=== PATIENT | male | born 2000 | race Caucasian/White ===

== ENCOUNTER 2025-06-21 19:48 | Emergency (ER) | payer BC, SELFPAY ==
[2025-06-21 20:26] VITALS: BP 119/73; PULSE 90; RESP 20; TEMP 37.1; O2SAT 98
--- NOTE | 2025-06-21 20:43 | PD.EDRME ---
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 Symptoms now improved. Exam: Mildly anxious Clinical Impression: Anxiety reaction
--- NOTE | 2025-06-21 20:45 | EKG_ITS ---
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
--- NOTE | 2025-06-21 20:46 | XR_ITS ---
EXAMINATION: PA chest single view TECHNIQUE: Upright PA chest single view Date and time: June 21, 2025, 2052 hours INDICATIONS: Chest pain today FINDINGS: Normal heart size The lungs are clear. The Bruno structures are intact IMPRESSION: No active disease
[2025-06-21 21:40] LABS: Amphetamine/Methamp Scrn,U Negative (Negative); Barbiturate Screen,Urine Negative (Negative); Benzodiazepines Screen,Urine Negative (Negative); Benzoylecgonine Screen, Ur Negative (Negative); Fentanyl Screen,Urine Negative (Negative); Opiate Screen,Urine Negative (Negative); THC Screen,Urine Negative (Negative)
[2025-06-21 21:45] LABS: Basophils # (Auto) 0.0 Thou/mm3 (0.0-0.2); Basophils % (Auto) 0 % (0-2.5); Eosinophils # (Auto) 0.1 Thou/mm3 (0.0-0.5); Eosinophils % (Auto) 1 % (0-10); Hematocrit 44.9 % (41.0-53.0); Hemoglobin 15.3 g/dL (13.5-16.0); Immature Granulocytes Auto 0.05 Thou/mm3 (0.00-0.00); Lymphocytes # (Auto) 3.1 Thou/mm3 (1.0-4.8); Lymphocytes % (Auto) 25 % (10-50); Mean Corpuscular HGB Conc 34.1 g/dl (31.0-37.0); Mean Corpuscular Hemoglobin 30.1 pg (25.0-35.0); Mean Corpuscular Volume 88 fL (80-100); Monocytes # (Auto) 0.7 Thou/mm3 (0.0-0.8); Monocytes % (Auto) 6 % (0-12); Neutrophils # (Auto) 8.3 Thou/mm3 (1.8-7.7); Neutrophils % (Auto) 68 % (37-80); Nucleated Red Blood Cell # 0.00 Thou/mm3 (0.00-0.00); Nucleated Red Blood Cell % 0 /100 WBC (0); Platelet Count 248 Thou/mm3 (140-440); RDW Standard Deviation 42.1 fL (35.1-43.9); Red Blood Count 5.09 Miln/mm3 (4.50-5.90); White Blood Count 12.2 Thou/mm3 (3.8-10.6)
[2025-06-21 21:57] VITALS: BP 143/75; PULSE 75; RESP 18; TEMP 36.7; O2SAT 96
[2025-06-21 22:02] LABS: Alanine Aminotransferase 24 U/L (10-49); Albumin, Serum 5.1 gm/dL (3.5-5.0); Albumin/Globulin Ratio 2.0 (1.2-2.2); Alcohol, Blood Medical < 3.0 mg/dL (0-10.0); Alkaline Phosphatase 71 U/L (46-116); Anion Gap 9 (7-16); Aspartate Amino Transferase 30 U/L (0-34); BUN/Creatinine Ratio 9 Ratio (12-20); Bilirubin,Total 0.5 mg/dL (0.3-1.2); Blood Urea Nitrogen 9 mg/dL (9-23); Calcium 9.7 mg/dL (8.3-10.6); Calcium (Corrected) 9.7 mg/dL (8.5-10.1); Carbon Dioxide 26.8 mMol/L (20.0-31.0); Chloride 105 mMol/L (98-107); Creatinine (Component) 1.0 mg/dL (0.6-1.3); Globulin 2.5 gm/dL (2.3-3.5); Glucose 101 mg/dL (74-106); Osmolality,Calculated 279 (275-295); Potassium 3.7 mMol/L (3.4-5.1); Sodium 141 mMol/L (136-145); Total Protein 7.6 gm/dL (5.7-8.2); Troponin I < 0.002 ng/mL (0.0-0.045); eGFR > 60 See Note
--- NOTE | 2025-06-21 22:16 | EDNOTE_ITS ---
ED General RME/HPI General Chief complaint: General Adult/Misc Complain Stated complaint: ANXIOUS Time Seen by Provider: 06/21/25 20:38 Arrival date/time: 06/21/25 19:48 RME / HPI RME / HPI narrative: 24-year-old male patient with no past medical history, came in for evaluation regarding sudden onset of panic attack. Onset of symptoms about 1 hour prior to ER visit, out of nowhere patient has been complaining of hyperventilation and jittery, carpopedal spasm, anxious, severity moderate. Patient also complained of shortness of breath, chest pain, feeling hot. Denies any homicidal or suicidal ideation. Denies any abuse of drugs or alcohol. Exam: Mildly anxious Impression: Anxiety reaction Related Data Previous Rx's ?Medication ?Instructions ?Recorded ibuprofen 600 mg tablet 1 tab PO Q8HR PRN pain #30 t abs 04/14/15 hydroxyzine HCl 50 mg tablet 50 mg PO TID PRN anxiety #30 tabs 06/21/25 Allergies Allergy/AdvReac Type Severity Reaction Status Date / Time NKA* Allergy Uncoded 04/14/15 21:54 Review of Systems Review of Systems Narrative Review of Systems: Review of system reviewed and within normal limits except mentioned in HPI ED Exam Narrative Physical exam: VITAL SIGNS: Reviewed. GENERAL APPEARANCE: Alert and interactive, follows commands, no acute distress, HEAD AND FACE: Non-traumatic. ENT: PERRL, pink conjunctivitis, eyelid no trauma, Mucous membrane moist. NECK: Supple, nontender, no nuchal rigidity. CHEST: No tenderness, no crepitus, no paradoxical movement, no retractions. LUNGS: Clear, well ventilated, symmetric, no rales, no wheezing, no ronchi, no stridor, good breath sounds bilaterally. HEART: Regular rate, regular rhythm, no murmur, no gallops. ABDOMEN: Soft, positive bowel sounds, nondistended, no guarding, nontender, no rebound, no masses, RECTAL: Deferred. GENITAL: Deferred. NEUROLOGICAL: Gross motor function intact sensory function intact, Appropriate for age. MUSCULOSKELETAL: low back nontender, full range of motion. EXTREMITIES: Nontender, full range of motion. SKIN: Color pink, dry, no rash, no lacerations, no abrasions, no contusions. LYMPHATICS: Deferred. Course Quality Measures none Orders Category Date Time Status EKG (ED ONLY) *Do not use* NOW Care 06/21/25 20:45 Completed CXR [XR chest 1V] Stat Exams 06/21/25 20:46 Completed EKG (ED Only) Stat Exams 06/21/25 20:45 Draft Alcohol, Blood Medical Stat Lab 06/21/25 21:04 Completed CBC Stat Lab 06/21/25 21:04 Completed CMP [Comprehensive Metabolic Panel] Stat Lab 06/21/25 21:04 Completed Drug Screen,Urine Stat Lab 06/21/25 21:13 Completed Troponin I Stat Lab 06/21/25 21:04 Completed LORazepam [Ativan] Med 06/21/25 20:45 Discontinued 2 mg PO X1 ONE Vital Signs Vital signs: Vital Signs Temperature 98.8 F 06/21/25 20:26 Pulse Rate 90 06/21/25 20:26 Respiratory Rate 20 06/21/25 20:26 Blood Pressure 119/73 06/21/25 20:26 Pulse Oximetry (%) 98 06/21/25 20:26 Oxygen Delivery Method Room Air 06/21/25 20:26 Discharge Plan Plan Patient Disposition: HOME (Self Care) Discharge Disposition comment: Stable Prescriptions/Referrals Prescriptions/Med Rec: New hydroxyzine HCl 50 mg tablet 50 mg PO TID PRN (Reason: anxiety) Qty: 30 0RF No Action ibuprofen 600 MG tablet 1 tab PO Q8HR PRN (Reason: pain) Qty: 30 0RF Referrals: No Primary/Family,Physician [Primary Care Provider] - In 1 week Problem List Clinical Impression: Anxiety Patient/Caregiver Discharge Instructions Discharge Activity: activity as tolerated Education Materials: ED Panic Attack Additional Instructions: Thank you for the opportunity for serving you today. You are stable for discharged . You are advised to: Follow-up with your PCP in 1 to 2 days Return to ED for worsening of symptoms Increase oral fluids Take medication as prescribed Print Language: Monegasque Stand Alone Forms: Denisse Award Info., Patient Portal Info Letter MDM Narrative MDM hospital course (for use when minimal MDM required): 24-year-old male patient with no past medical history, came in for evaluation regarding sudden onset of panic attack. Onset of symptoms about 1 hour prior to ER visit, out of nowhere patient has been complaining of hyperventilation and jittery, carpopedal spasm, anxious, severity moderate. Patient also complained of shortness of breath, chest pain, feeling hot. Denies any homicidal or suicidal ideation. Denies any abuse of drugs or alcohol. Patient's workup today all came back unremarkable except for slight leukocytosis. Patient's troponin is normal tested negative for drug toxicity. I personally reviewed and interpreted the x-ray of this patient. There is no acute abnormalities found, no infiltrates no pneumothorax no hemothorax normal chest x-ray. Review of other structures was without significant abnormal findings also. I additionally reviewed the radiologist report and agree with the interpretation. EKG showed sinus rhythm, ventricular to be 81 bpm, no ST segment elevation depression noted. Patient was given p.o. Ativan, with complete resolution of symptoms, patient told me that his symptom is totally gone and wanted to go home. I will prescribe the patient home on hydroxyzine. Medication Administration(s) Medication Administration History Discontinued Medications Lorazepam (Lorazepam 0.5 Mg Tablet) 2 mg PO X1 ONE Stop: 06/21/25 20:46 Last Admin: 06/21/25 21:11 Dose: 2 mg Documented By: CVL Diagnosis Differential Diagnosis ED Complaint MDM: Palpitation hyperventilation panic attack Diagnoses ruled out and/or further discussions: Panic attack
[2025-06-21 22:47] VITALS: BP 143/75; PULSE 75; RESP 18; TEMP 36.6; O2SAT 95
--- NOTE | 2025-06-21 22:48 | PC.NURSE ---
PER PT THAT HE FEELS READY TO BE DISCHARGE. HE DENIES FEELING DROWSY AND TIRED AND STATES HES SUITABLE ENOUGH TO DRIVE HOME WITHOUT CONCERNS
== END 2025-06-21 22:49 | disposition home or self-care (01) ==
PROVIDERS: Physician Assistant; Emergency Provider Emergency Medicine
DX: F41.9 Anxiety disorder, unspecified (principal); R07.9 Chest pain, unspecified
CPT/HCPCS: 36415; 71045; 80053; 80307; 80320; 84484; 85025; 93005; 99283; A9270; G0480